=== PATIENT | female | born 1975 | race Two or more races ===

== ENCOUNTER → 2019-04-10 | Outpatient (CLI) | payer OTHER ==
[2019-04-10 11:32] LABS: BASOPHILS % (AUTO) 1.1 % (0.0-2.0); EOSINOPHILS % (AUTO) 4.5 % (1.0-6.0); HEMATOCRIT 39.4 % (36-46); HEMOGLOBIN 12.6 g/dL (12.0-16.0); HEMOGLOBIN A1C 5.9 % (4.5-6.2); LYMPHOCYTES % (AUTO) 27.2 % (22.0-44.0); MEAN CORPUSCULAR HEMOGLOBIN 28.5 pg (26.0-34.0); MEAN CORPUSCULAR HGB CONC 32.1 G/dL (31.0-37.0); MEAN CORPUSCULAR VOLUME 89 fL (80-100); MONOCYTES # (AUTO) 0.4 K/uL (0.1-1.0); MONOCYTES % (AUTO) 5.3 % (2.0-9.0); NEUTROPHILS # (AUTO) 4.6 K/uL (1.8-7.7); NEUTROPHILS % (AUTO) 61.9 % (40.0-70.0); RED BLOOD CELL COUNT(AUTO) 4.44 MIL/uL (4.00-5.20); RED CELL DISTRIBUTION WIDTH 14.4 % (11.5-14.5)
[2019-04-10 11:43] LABS: ALANINE AMINOTRANSFERASE 67 U/L (12-78); ALBUMIN 3.9 g/dL (3.4-5.0); ALKALINE PHOSPHATASE 62 U/L (46-116); ANION GAP 7 mmol/L (8-16); ASPARTATE AMINOTRANSFERASE 34 U/L (15-37); BILIRUBIN,TOTAL 0.3 mg/dL (0.1-1.0); CARBON DIOXIDE 29 mmol/L (22-29); CHLORIDE 103 mmol/L (98-107); CHOL/HDL RATIO 3.2 (3.9-5.7); CHOLESTEROL 161 mg/dL (131-200); CREATININE 0.58 mg/dL (0.60-1.30); FREE T4 (FREE THYROXINE) 0.85 ng/dL (0.76-1.46); GLOMERULAR FILTR. RATE CALC > 60 mL/min (>60); GLUCOSE,RANDOM 84 mg/dL (70-110); HDL CHOLESTEROL 50 mg/dL (40-60); LDL CHOL (CALC.) 83 mg/dL (0-130); SODIUM SERUM 139 mmol/L (136-145); THYROID STIMULATING HORMONE 2.32 uIU/mL (0.36-3.74); TOTAL PROTEIN, SERUM 8.4 g/dL (6.4-8.2); TRIGLYCERIDES 142 mg/dL (15-150); UREA NITROGEN, BLOOD 15 mg/dL (7-18)
[2019-04-10 12:10] LABS: PLATELET COUNT (AUTO) 187 K/uL (150-450)
== END | disposition home or self-care (01) ==
LOC: LABPV 10:12
PROVIDERS: ATTEND Internal Medicine Cardiovascular Disease
DX: E55.9 Vitamin D deficiency, unspecified (principal); I11.0 Hypertensive heart disease with heart failure; E11.9 Type 2 diabetes mellitus without complications; D56.5 Hemoglobin E-beta thalassemia
CPT/HCPCS: 82306; 83036; 83735; 84439; 84443